=== PATIENT | male | born 1960 | race Caucasian/White ===

== ENCOUNTER → 2016-04-22 | Outpatient (CLI) | payer MEDICAID ==
[~2016-04-22] MED LIST: IOPAMIDOL (ISOVUE-370) 150 ML BTL IV ONE
== END ==
LOC: FIMAGING 15:21
PROVIDERS: ATTEND Internal Medicine
DX: I71.2 Thoracic aortic aneurysm, without rupture (principal)
CPT/HCPCS: Q9967

== ENCOUNTER 2016-04-24 14:01 | Day surgery (SDC) | payer MEDICAID ==
[2016-04-24] MEDS ORDERED: LIDOCAINE 1% 5 ML SDV ONE (14:14)
[2016-04-24] MEDS ORDERED: MIDAZOLAM 2 MG/2 ML VIAL ONE (14:32)
[2016-04-24] MEDS ORDERED: fentaNYL 100 MCG/2 ML INJ ONE (14:32)
[2016-04-24] MEDS ORDERED: LIDOCAINE 1% 2 ML INJ ID PRN (14:32)
[2016-04-24] MEDS ORDERED: LR 1,000 ML IV SCH (15:00)
--- NOTE | 2016-04-24 15:42 | GPN ---
PROCEDURE: Colonoscopy. INDICATION: The patient is a 56-year-old male who presents for his first colon cancer screening. Jarred farnsworth has a family history of colon cancer. DESCRIPTION OF PROCEDURE: After proper consent was obtained, patient was placed in the left lateral decubitus position, where he received 6 mg of intravenous Versed, 100 mcg intravenous fentanyl. Th e video colonoscope was introduced through the anus and rectum up the left colon across the transver se colon, then right colon to cecum. FINDINGS: 1. Mild left-sided diverticulosis. 2. No polyps, tumors or other lesions. 3. The ileocecal valve was identified and photographed. At this point, instrument was removed. The patient tolerated the procedure well and was returned to the recovery room in stable condition. RECOMMENDATIONS: The patient should continue with vigilant colon cancer screening. Next colonoscop y in 5 years' time. /[id number]/MODL
== END 2016-04-24 16:00 | disposition home or self-care (01) ==
LOC: FSGY 14:01 → FPAT 14:01 → EEVIPCON 15:15 → FPAT 16:00
PROVIDERS: ATTEND Internal Medicine Gastroenterology
PROC: 0DJD8ZZ Inspection of Lower Intestinal Tract, Via Natural or Artificial Opening Endoscopic (ICD-10-PCS; principal; 2016-04-24 15:15)
DX: Z12.11 Encounter for screening for malignant neoplasm of colon (principal); Z80.0 Family history of malignant neoplasm of digestive organs
CPT/HCPCS: J2250; J3010

== ENCOUNTER 2016-09-13 15:46 | Emergency (ER) | payer MEDICAID ==
--- NOTE | 2016-09-13 15:59 | CPEKG ---
Heart Rate: 81 RR Interval: 741 P-R Interval: 156 QRSD Interval: 80 QT Interval: 392 QTC Interval: 455 P [place]: 41 QRS [place]: 17 T Wave [place]: 51 EKG Severity - ABNORMAL ECG - EKG Impression: SINUS RHYTHM EKG Impression: PROBABLE POSTERIOR INFARCT Electronically Signed By: Mario Chan 13-Sep-2016 22:45:09
--- NOTE | 2016-09-13 16:04 | EDPHY ---
H & P HPI/ROS: HPI CHIEF COMPLAINT: "I am dehydrated" HISTORY OF PRESENT ILLNESS: This patient 56-year-old male significant past medical history for hypertension but does not take any daily blood pressure medications, he presents emergency room stating that he feels dehydrated. And he has been having generalized weakness. Patient tells me that last night he was in the hot tub for prolonged period of time he drank 5 beers he woke up this morning not feeling well. He states he normally does hot yoga every day however had to skip the hot yoga as he felt very warm and dehydrated. He tells me his entire body is weak. He denies chest pain or shortness of breath. He denies nausea or vomiting. Denies headache or neck pain or jaw pain. Denies numbness or tingling. His main complaint is generalized weakness. He went to his primary care doctor's office where they checked the mid and noted his blood pressure to be high 190s over 100 some referred him here to the emergency room. He did arrive here by EMS. Upon arrival he is noted to be hypertensive however he has no complaints except generalized weakness. He does not take any blood pressure medication he has been noted by his primary care doctor to have hypertension but has not started medication. He has a home blood pressure monitor in's tells me that his blood pressure runs 130s over 90s. Past Medical History: Hypertension Past Surgical History: knee surgery Social History: daily alcohol use 5 beers, denies tobacco or drugs Family History: noncontributory ROS REVIEW OF SYSTEMS: A comprehensive 10 point review of systems is otherwise negative aside from elements mentioned in the history of present illness. Exam Constitutional appears well nontoxic triage nursing summary reviewed, vital signs reviewed, awake/alert. Eyes normal conjunctivae and sclera, EOMI, PERRLA. HENT normal inspection, atraumatic, moist mucus membranes, no epistaxis, neck supple/ no meningismus, no raccoon eyes. Respiratory clear to auscultation bilaterally, normal breath sounds, no respiratory distress, no wheezing. Cardiovascular rate normal, regular rhythm, no murmur, no edema, distal pulses normal. Gastrointestinal soft, non-tender, no rebound, no guarding, normal bowel sounds, no distension, no pulsatile mass. Genitourinary no CVA tenderness. Musculoskeletal no midline vertebral tenderness, full range of motion, no calf swelling, no tenderness of extremities, no meningismus, good pulses, neurovascularly intact. Skin pink, warm, & dry, no rash, skin atraumatic. Neurologic awake, alert and oriented x 3, AAOx3, moves all 4 extremities equally, motor intact, sensory intact, CN II-XII intact, normal cerebellar, normal vision, normal speech. somewhat shaky, anxious, Psychiatric normal mood/affect. Heme/Lymph/Immune no lymphadenopathy. 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 Re-evaluation: EKG interpretation by me on record in [employer] system. Impression Time of EKG 155, this is sinus rhythm rate of 81, no ST elevation. No ST depression. No T-wave abnormalities. This appears to be an unremarkable EKG. 1802: Re-evaluation at this time this patient is feeling much better after IV fluids. His blood pressure has improved 166/70. This is down from 200/100s. There is no acute intervention given. Still seems anxious and tremulous. I have ordered him IV Ativan will re-evaluate shortly. 1899: Blood pressure 155/99. 191: This patient is resting comfortably here in the emergency room in no acute distress. Denies chest pain shortness of breath. Denies headache or dizziness. He is blood pressures improved to 1 50s over 90s. Heart rate 60s. No complaints. I do recommend that he cut back on his alcohol intake is drinking 5 drinks per night. I also recommend that he does not do hot yoga went to 100 degrees out. He understands stay well-hydrated drink lots of fluids. He also understands to monitor his blood pressure closely recommend he keeps a log takes blood pressure twice a day. Also follow up closely with his primary care doctor. I will give him a prescription for Norvasc to start taking if he finds his blood pressure to be elevated over the weekend 150s 160s 170s. He understands return emergency room if he develops chest pain, shortness of breath, headache, dizziness, vomiting or severe high blood pressure. Or questions or concerns. Source: Patient, EMS - Medical/Surgical History Hx Diabetes: No - Social History Smoking Status: Never smoked Constitutional: Initial Vital Signs Temperature (C) 36.8 C 09/13/16 16:03 Heart Rate 81 09/13/16 16:03 Respiratory Rate 20 09/13/16 16:03 Blood Pressure 200/120 H 09/13/16 16:03 O2 Sat (%) 98 09/13/16 16:03 O2 Delivery Mode Room Air Allergies/Adverse Reactions: No Known Allergies Allergy (Verified 09/13/16 16:02) Home Medications: Medication Instructions Recorded amLODIPine BESYLATE [Norvasc 5 mg 5 mg PO DAILY #30 tab 09/13/16 (*)] Medical Decision Making - Diagnostics Imaging Results: Imaging Impressions Chest X-Ray 09/13/16 16:11 Impression: Stable chest radiography, compared to a previous study of 04/22/2016. - Data Points Laboratory Results: Laboratory Results 09/13/16 15:50 09/13/16 15:50 09/13/16 09/13/16 09/13/16 15:50 15:50 15:50 WBC 7.59 10^3/uL 10^3/uL (3.80-9.50) RBC 5.19 10^6/uL 10^6/uL (4.40-6.38) Hgb 16.9 g/dL g/dL (13.7-17.5) Hct 48.6 % % (40.0-51.0) MCV 93.6 fL fL (81.5-99.8) MCH 32.6 pg pg (27.9-34.1) MCHC 34.8 g/dL g/dL (32.4-36.7) RDW 12.0 % % (11.5-15.2) Plt Count 286 10^3/uL 10^3/uL (150-400) MPV 9.9 fL fL (8.7-11.7) Neut % (Auto) 72.5 % % (39.3-74.2) Lymph % (Auto) 19.4 % % (15.0-45.0) [place] % (Auto) 7.4 % % (4.5-13.0) Eos % (Auto) 0.0 % L % (0.6-7.6) Baso % (Auto) 0.3 % % (0.3-1.7) Nucleat RBC Rel Count 0.0 % % (0.0-0.2) Absolute Neuts (auto) 5.51 10^3/uL 10^3/uL (1.70-6.50) Absolute Lymphs (auto) 1.47 10^3/uL 10^3/uL (1.00-3.00) Absolute Monos (auto) 0.56 10^3/uL 10^3/uL (0.30-0.80) Absolute Eos (auto) 0.00 10^3/uL L 10^3/uL (0.03-0.40) Absolute Basos (auto) 0.02 10^3/uL 10^3/uL (0.02-0.10) Absolute Nucleated RBC 0.00 10^3/uL 10^3/uL (0-0.01) Immature Gran % 0.4 % % (0.0-1.1) Immature Gran # 0.03 10^3/uL 10^3/uL (0.00-0.10) PT 12.2 SEC SEC (12.0-15.0) INR 0.91 (0.83-1.16) APTT 26.3 SEC SEC (23.0-38.0) D-Dimer < 0.27 ug/mLFEU ug/mLFEU (0.00-0.50) Sodium 141 mEq/L mEq/L (134-144) Potassium 4.0 mEq/L mEq/L (3.5-5.2) Chloride 104 mEq/L mEq/L (97-110) Carbon Dioxide 20 mEq/l L mEq/l (22-31) Anion Gap 17 mEq/L H mEq/L (8-16) BUN 11 mg/dL mg/dL (7-23) Creatinine 0.9 mg/dL mg/dL (0.7-1.3) Estimated GFR > 60 Glucose 198 mg/dL H mg/dL (70-100) Calcium 9.6 mg/dL mg/dL (8.5-10.4) Magnesium 2.1 mg/dL mg/dL (1.6-2.3) Total Bilirubin 0.5 mg/dL mg/dL (0.1-1.4) Conjugated Bilirubin 0.3 mg/dL mg/dL (0.0-0.5) Unconjugated Bilirubin 0.2 mg/dL mg/dL (0.0-1.1) AST 37 IU/L IU/L (17-59) ALT 30 IU/L IU/L (21-72) Alkaline Phosphatase 48 IU/L IU/L (38-126) Creatine Kinase 116 IU/L IU/L (0-224) CK-MB (CK-2) Fraction 1.81 ng/mL ng/mL (0-3.19) Troponin I < 0.012 ng/mL ng/mL (0-0.034) NT-Pro-B Natriuret Pep 72 pg/mL pg/mL (0-125) Total Protein 7.5 g/dL g/dL (6.3-8.2) Albumin 4.7 g/dL g/dL (3.5-5.0) Lipase 376.0 IU/L H IU/L (23-300) Medications Given: Discontinued Medications Sodium Chloride (Ns) 2,000 mls @ 0 mls/hr IV ONCE ONE; Wide Open PRN Reason: Protocol Stop: 09/13/16 16:12 Last Admin: 09/13/16 16:16 Dose: 2,000 mls Lorazepam (Ativan Injection) 0.5 mg IVP EDNOW ONE Stop: 09/13/16 17:29 Last Admin: 09/13/16 18:09 Dose: 0.5 mg Departure - Departure Disposition: Home, Routine, Self-Care Clinical Impression: Hypertension Qualifiers: Hypertension type: essential hypertension Qualified Code(s): I10 - Essential ( primary) hypertension Condition: Good Instructions: Hypertension (ED) Additional Instructions: 1. Please monitor your blood pressure closely. If you are finding you are having very significant elevated readings please seek medical attention. 2. Please follow up with your primary care doctor. 3. Return emergency room if you develops chest pain, severe headache, nausea or vomiting. 4. I do recommend he keep a blood pressure log closely. Take a blood pressure twice a day same time every day for week. Keep a blood pressure log follow up with your primary care doctor. Referrals: Patient,NotPresent [Unknown] - As per Instructions Prescriptions: amLODIPine BESYLATE [Norvasc 5 mg (*)] 5 mg PO DAILY #30 tab
[2016-09-13 16:07] VITALS: TEMP 98.2
[2016-09-13] MEDS ORDERED: NS 2,000 ML IV ONE (16:11)
[2016-09-13 16:17] LABS: % IMMATURE GRANULYOCYTES 0.4 % (0.0-1.1); ABSOLUTE IMMATURE GRANULOCYTES 0.03 10^3/uL (0.00-0.10); ADD DIFF? NO; ADD MORPH? NO; ADD SCAN? NO; ATYPICAL LYMPHOCYTE FLAG 0 (0-99); FRAGMENT RBC FLAG 0 (0-99); HEMATOCRIT 48.6 % (40.0-51.0); HEMOGLOBIN 16.9 g/dL (13.7-17.5); LEFT SHIFT FLG 0 (0-99); LIPEMIA HEMOLYSIS FLAG 90 (0-99); MEAN CELL HEMOGLOBIN 32.6 pg (27.9-34.1); MEAN CELL HEMOGLOBIN CONCENTR. 34.8 g/dL (32.4-36.7); MEAN CELL VOLUME 93.6 fL (81.5-99.8); MEAN PLATELET VOLUME 9.9 fL (8.7-11.7); PLATELET CLUMPS FLAG 0 (0-99); PLATELET COUNT 286 10^3/uL (150-400); RED BLOOD CELL COUNT 5.19 10^6/uL (4.40-6.38)
[2016-09-13 16:20] VITALS: RESP 16
[2016-09-13 16:29] LABS: INR 0.91 (0.83-1.16); PROTIME(PATIENT) 12.2 SEC (12.0-15.0)
[2016-09-13 16:30] LABS: APTT 26.3 SEC (23.0-38.0)
[2016-09-13 16:40] LABS: ALANINE AMINOTRANSFERASE 30 IU/L (21-72); ALBUMIN 4.7 g/dL (3.5-5.0); ALKALINE PHOSPHATASE 48 IU/L (38-126); ANION GAP 17 mEq/L (8-16); ASPARTATE AMINOTRANSFERASE 37 IU/L (17-59); BILIRUBIN,TOTAL 0.5 mg/dL (0.1-1.4); BILIRUBIN-CONJUGATED 0.3 mg/dL (0.0-0.5); BILIRUBIN-UNCONJUGATED 0.2 mg/dL (0.0-1.1); CALCIUM 9.6 mg/dL (8.5-10.4); CARBON DIOXIDE 20 mEq/l (22-31); CHLORIDE 104 mEq/L (97-110); CREATININE 0.9 mg/dL (0.7-1.3); GLOMERULAR FILTRATION RATE > 60; GLUCOSE 198 mg/dL (70-100); MAGNESIUM 2.1 mg/dL (1.6-2.3); SODIUM 141 mEq/L (134-144); TOTAL PROTEIN 7.5 g/dL (6.3-8.2)
[2016-09-13 16:51] LABS: CREATINE KINASE-MB FRACTION 1.81 ng/mL (0-3.19); TROPONIN I < 0.012 ng/mL (0-0.034)
[2016-09-13] MEDS ORDERED: LORazepam 2 MG/ML INJ IVP ONE (17:28)
[2016-09-13 19:01] VITALS: BP 155/99
[2016-09-13 19:18] VITALS: PULSE 67; O2SAT 97
== END 2016-09-13 19:23 | disposition home or self-care (01) ==
LOC: EDUNIT#
DX: I10 Essential (primary) hypertension (principal); E86.9 Volume depletion, unspecified
CPT/HCPCS: 96374; J2060

== ENCOUNTER → 2018-05-29 | Outpatient (CLI) | payer OTHER | LOC: BMCIMAGING 08:37 | PROVIDERS: ATTEND Physician Assistant | DX: M25.561 Pain in right knee (principal) ==